=== PATIENT | male | born 1975 | race African-American/Black ===

== ENCOUNTER 2019-01-01 22:45 | Emergency (ER) | payer OTHER ==
[~2019-01-01] VITALS: Ht 188 cm; Wt 100.0 kg
[2019-01-02] MEDS ORDERED: SULF1TAB49 PO (00:55)
[2019-01-02] MEDS ORDERED: sulfamethoxazole/trimethoprim DS (800/160mg) tablet PO ONE (00:55)
[2019-01-02 01:21] VITALS: BP 138/56
== END 2019-01-02 01:20 | disposition home or self-care (01) ==
LOC: ER 22:47
DX: L03.116 Cellulitis of left lower limb (principal); Z79.2 Long term (current) use of antibiotics
CPT/HCPCS: 99283

== ENCOUNTER → 2020-01-15 | Emergency (ER) | payer OTHER ==
[~2020-01-15] VITALS: Ht 185.4 cm; Wt 102.0 kg
[~2020-01-15] MED LIST: CEPH-572 PO; PRED50TA PO; cephalexin 250mg capsule PO ONE; predniSONE 20 mg tablet PO ONE; triamcinolone acetonide 0.5% cream 15gm TP STA
[2020-01-15 17:01] VITALS: BP 134/80
== END | disposition home or self-care (01) ==
LOC: ER 20:31
DX: T22.412A Corrosion of unspecified degree of left forearm, initial encounter (principal); Z79.899 Other long term (current) drug therapy
CPT/HCPCS: 16020; 99284; J7512

== ENCOUNTER 2020-01-17 13:17 | Emergency (ER) | payer OTHER ==
[~2020-01-17] VITALS: Ht 185.4 cm; Wt 102.3 kg
[~2020-01-17 13:17] MED LIST changes: -cephalexin 250mg capsule PO ONE; -predniSONE 20 mg tablet PO ONE; -triamcinolone acetonide 0.5% cream 15gm TP STA
[2020-01-17 14:32] VITALS: BP 116/73
== END 2020-01-17 14:33 | disposition home or self-care (01) ==
LOC: ER 13:17
DX: T30.4 Corrosion of unspecified body region, unspecified degree (principal); Z48.00 Encounter for change or removal of nonsurgical wound dressing; Z79.899 Other long term (current) drug therapy
CPT/HCPCS: 99281